=== PATIENT | female | born 1965 | race Hispanic/Latino ===

== ENCOUNTER 2017-06-22 09:02 | Observation (INO) | payer OTHER ==
[~2017-06-22] VITALS: Ht 157.5 cm; Wt 90.1 kg
[2017-06-22] MEDS ORDERED: SODIUM CHLORIDE 0.9% 1000ML 1,000 ML IV ONE (09:49)
[2017-06-22] MEDS ORDERED: ONDANSETRON HCL MDV 20ML 2 MG/ML VIAL ONE (09:49)
[2017-06-22 09:50] LABS: BASOPHILS % (AUTO) 0.5 % (0.0-5.0); EOSINOPHILS % (AUTO) 1.9 % (0.0-8.0); HEMATOCRIT 42.7 % (36-48); LYMPHOCYTES % (AUTO) 26.5 % (21.0-51.0); MEAN CORPUSCULAR HEMOGLOBIN 32.7 pg (27.0-33.0); MEAN CORPUSCULAR HGB CONC 34.3 g/dL (32.0-36.0); MEAN CORPUSCULAR VOLUME 95.4 fL (79-99); NEUTROPHILS % (AUTO) 63.1 % (40.0-77.0); PLATELET COUNT (AUTO) 284 K/uL (130-400); RED BLOOD CELL COUNT(AUTO) 4.48 MIL/uL (4.00-5.50); RED CELL DISTRIBUTION WIDTH 13.3 % (11.0-15.5); WHITE BLOOD COUNT (AUTO) 9.3 K/uL (4.8-10.8)
[2017-06-22] MEDS ORDERED: MORPHINE SULFATE 4 MG/1ML SYG ONE ×2 (09:50→11:55)
[2017-06-22 09:59] LABS: CREATININE 0.8 mg/dL (0.5-1.5); POTASSIUM 3.9 mmol/L (3.5-5.1)
[2017-06-22 10:04] LABS: ALBUMIN 3.6 g/dL (3.5-5.0); BILIRUBIN,TOTAL 0.3 mg/dL (0.2-1.0); TOTAL PROTEIN, SERUM 8.1 g/dL (6.0-8.3)
[2017-06-22] MEDS ORDERED: IOPAMIDOL-370 75 ML VIAL IV ONE (10:09)
[2017-06-22] MEDS ORDERED: LIDOCAINE HCL 2% VISCOUS 15 ML UDCUP ONE ×2 (11:09→11:13)
[2017-06-22] MEDS ORDERED: MAG HYDROX/AL HYDROX/SIMETH ES 30 ML SUSP UDCUP ONE ×2 (11:10→11:13)
[2017-06-22 15:05] VITALS: BP 143/76
[2017-06-22] MEDS ORDERED: MORPHINE SULFATE 4 MG/1ML SYG IVP PRN (15:15)
[2017-06-22] MEDS ORDERED: SODIUM CHLORIDE 0.9% 1000ML 1,000 ML IV SCH (15:15)
[2017-06-22] MEDS ORDERED: LOSA1TAB37 PO (18:11)
[2017-06-22 19:24] VITALS: BP 117/76
[2017-06-22 23:19] VITALS: BP 109/62
[2017-06-23 03:32] VITALS: BP 120/70
[2017-06-23 07:30] VITALS: BP 121/63
[2017-06-23] MEDS ORDERED: LACTULOSE 20 GM/30 ML UDCUP PO PRN (08:00)
[2017-06-23] MEDS ORDERED: PANTOPRAZOLE 40 MG/VIAL IVP SCH (09:00)
[2017-06-23 11:10] VITALS: BP 137/73
[2017-06-23 16:21] VITALS: BP 137/74
[2017-06-24] MEDS ORDERED: LOSARTAN/HYDROCHLOROTHIAZIDE 50-12.5MG TABLET PO SCH (09:00)
== END 2017-06-23 18:15 | disposition home or self-care (01) ==
LOC: EDH 09:02 → EDHIP 09:03 → 3BH 15:05
PROVIDERS: ADMIT Family Medicine; ATTEND Family Medicine
DX: R10.12 Left upper quadrant pain (principal); K59.00 Constipation, unspecified; I10 Essential (primary) hypertension; E66.9 Obesity, unspecified
CPT/HCPCS: 36415; 74177; 80053; 82550; 82948 ×4; 83690; 84484; 85025; 93005; 96361; 96374; 96375; 99285; C9113; G0378 ×33; J2270 ×3; J7030 ×2; Q9967